=== PATIENT | male | born 1985 | race Caucasian/White ===

== ENCOUNTER 2020-09-10 09:00 | Outpatient (RCR) | payer BC, SELFPAY ==
--- NOTE | 2020-09-10 09:00 | BH.SGPN.GN ---
Behaviors/Verbalizations/Mental Status: [] Pt eye contact good, casually dressed, motor activity appropriate, speech normal rate and tone, mood anxious, congruent affect, thoughts linear and intact, no evidence of delusions or hallucinations. Client Response/Progress/Benefit: []Pt responded well to session AEB by pt listening attentively to peers and sharing thoughts and feelings. Pt stated he is seeking treatment because his anxiety is keeping him from socializing with others. Pt reported he has OCD which has worsened with the pandemic. Pt reported his obsessions have recently been about eating healthy and working out, which he stated he views as a positive since it's healthy things. Although pt reported he does get anxious if he doesn't exercise. Pt stated OCD keeps him from leaving his house. Pt's first day. Seemed to benefit from support from peers. Pt to continue IOP to increase healthy coping, decrease anxiety and prevent decompensation. Narrative Note: []
--- NOTE | 2020-09-10 09:00 | BH.COMM ---
Communication Note - Communication with Client Communication Note: Completed initial paperwork. Minimal changes since pre-admission screening. Pt reports that he is currently not taking any medications which was decision discussed with his outpatient psychiatrist. Continues to be on FMLA from work and has not returned in any capacity due to his mental health. Completed [place] Suicide Screening with low risk. Obsessive thoughts and germaphobia continues to significantly impact his functioning.
--- NOTE | 2020-09-10 10:10 | BH.SGPN.GN ---
Behaviors/Verbalizations/Mental Status: [] Eye contact is good. Motor activity is appropriate. Appearance is casual. Speech is Appropriate. Mood is anxious. Affect is congruent. Thoughts are linear and logical. No evidence of psychosis. Client Response/Progress/Benefit: [] Pt was an active participant in group discussion and activity. Attentive during psychoeducation. Pt and peers provided examples of pitfalls or setbacks that people can fall into which impact mental health which included; triggers, fear, cognitive distortions, isolating, self-pity, avoidance, and pushing support away. During experiential activity pt along with peers identified several other pitfalls associated with mental health which included; poor communication, assumptions, lack of awareness, negative self-talk, anger, personalizing, and ruminating. Benefited from group by increasing awareness of pitfalls which can impact mental health. Pt will continue in IOP to prevent decompensation, decrease intrusive thoughts, and improve functioning to return to work. Narrative Note: [] This psychotherapy group was provided via telehealth using two-way, real-time interactive telecommunication technology between the patients and the provider. The interactive telecommunication technology included audio and video. The patient was offered telemedicine as an option for care delivery during the COVID-19 pandemic and consented to this option. Patient location: [place] Provider located at [facility]
--- NOTE | 2020-09-10 11:18 | BH.SGPN.GN ---
This psychotherapy group was provided via telehealth using two-way, real-time interactive telecommunication technology between the clients and the provider. The interactive telecommunication technology included audio and video. The client was offered telemedicine as an option for care delivery during the COVID-19 pandemic and consented to this option. Client location: [place] Provider located at [facility] Behaviors/Verbalizations/Mental Status: []Client alert and oriented, neatly dressed and groomed. Eye contact good. Motor activity appropriate. Speech within normal limits. Affect congruent, mood euthymic. Thoughts linear, logical, no signs of hallucinations or delusions Client Response/Progress/Benefit: []Client receptive of session, engaged throughout AEB client actively listening and contributing to discussion, as well as taking notes. Client completed worksheet identifying personal pitfalls impacting mental health progress. Client identified the following pitfalls: expecting the worst, making assumptions, avoidance, fear of failure, and unrealistic expectations of others. Attentive during group brainstorm of strategies to overcome pitfalls. Client will work on overcoming unrealistic expectations of others by practicing thinking before he speaks. Benefited from identifying personal pitfalls and strategies to overcome these pitfalls. Will continue IOP tx to prevent decompensation, learn healthy coping skills, and decrease avoidance behaviors. Narrative Note: []
--- NOTE | 2020-09-11 09:00 | BH.SGPN.GN ---
This psychotherapy group was provided via telehealth using two-way, real-time interactive telecommunication technology between the clients and the provider. The interactive telecommunication technology included audio and video. The client was offered telemedicine as an option for care delivery during the COVID-19 pandemic and consented to this option. Client location: [place] Provider located at [facility] Behaviors/Verbalizations/Mental Status: []Client alert and oriented, neatly dressed and groomed. Eye contact good. Motor activity appropriate. Speech within normal limits. Affect constricted, mood anxious. Thoughts linear, logical, no signs of hallucinations or delusions. Reviewed client?s symptom tracker, no risk for suicidal ideation, plan, or intent as of 09/11/20 Client Response/Progress/Benefit: []Client responded well to session, attentive and receptive to feedback. Client reports feeling stressed this morning as client went to a graduation democrat over the weekend and it was too much exposure. Client struggles with OCD, specifically fear of germs, so he has been working on small exposure goals. However, client recognizes that he pushed himself too far with the graduation democrat. Client shared he has been working on catching catastrophizing thoughts and not letting them control his day/actions. Client wants to continue working on reducing his anxiety and OCD, so he can be social again. Appeared to benefit from reflecting on positives and processing stressors. Progress noted as client is working on individual goals, but his fears continue to impact overall functioning. Will continue IOP tx to prevent decompensation, increase healthy coping skills, and improve overall functioning. Narrative Note: []
--- NOTE | 2020-09-11 10:05 | BH.SGPN.GN ---
Behaviors/Verbalizations/Mental Status: [] Eye contact is good. Motor activity is appropriate. Appearance is casual. Speech is Appropriate. Mood is anxious. Affect is congruent. Thoughts are linear and logical. No evidence of psychosis. Client Response/Progress/Benefit: [] Pt was an active participant in group discussion and activity. Attentive during psychoeducation. Group identified the benefits of making changes or taking action on their mental wellness which included; increased confidence, healthier relationships, improved emotional health, reduction of anxiety, increased awareness, and improved recognition of triggers. Pt stated that the 3 biggest obstacles for him to taking action or making changes in his life are fear of judgement, comfortable habits, catastrophizing. Increased awareness of importance of taking action in mental health and obstacles that keep them from taking action. Will continue in IOP to decrease intrusive contamination throughs, increase health coping skills, and improve functioning to return to work. Narrative Note: [] This psychotherapy group was provided via telehealth using two-way, real-time interactive telecommunication technology between the patients and the provider. The interactive telecommunication technology included audio and video. The patient was offered telemedicine as an option for care delivery during the COVID-19 pandemic and consented to this option. Patient location: [place] Provider located at [facility]
--- NOTE | 2020-09-11 11:10 | BH.SGPN.GN ---
This psychotherapy group was provided via telehealth using two-way, real-time interactive telecommunication technology between the patients and the provider. The interactive telecommunication technology included audio and video. The patient was offered telemedicine as an option for care delivery during the COVID-19 pandemic and consented to this option. Patient location: [place] Provider located at [facility] Behaviors/Verbalizations/Mental Status: []Client alert and oriented, casually dressed and appropriately groomed. Eye contact good. Motor activity appropriate. Speech within normal limits. Affect constricted, mood anxious. Thoughts linear, logical, no signs of hallucinations or delusions. Client Response/Progress/Benefit: []Client responded well to session, taking notes and participating in worksheet discussion. Client set a goal to gain control over his catastrophic thinking. Client wants to be able to work on this by exposing himself to 2-3 uncomfortable things daily. Client connected with fear hierarchy explained to him by therapist. Client stated he will ask his for support to help him accomplish this goal. Worked with group to brainstorm ideas to help increase follow through of goal. Appeared to benefit from identifying a small goal to benefit mental health. Will continue IOP tx to prevent decompensation, increase healthy coping skills, and improve daily functioning. Narrative Note: []
--- NOTE | 2020-09-12 09:00 | BH.SGPN.GN ---
Behaviors/Verbalizations/Mental Status: [] Eye contact is good. Motor activity is appropriate. Appearance is casual. Speech is Appropriate. Mood is anxious. Affect is congruent. Thoughts are linear and logical. No evidence of psychosis. Reviewed daily check in sheet and no reports of suicidal ideations or intent. Client Response/Progress/Benefit: [] Pt participated when prompted. Attentive. Pt shared with the group that after yesterday's group on taking action he decided to change his goal for today. He has plans to leave the house and take the car for an oil change. Significant anxiety and distress due to contamination fears and being in a small waiting room. He reports being motivated and discussed skills that he has learned through exposure therapy and CBT that he will be utilizing. Focused on making it through without walking outside of the waiting room for air or space. Displayed some all or nothing thinking on success vs failure. He noted regression yesterday as he felt compulsion to clean some items that his bought from a local thrift store, however he did sit with the uncomfortable for 24 hours. Some progress noted per pt report. Benefited from group support and feedback. Will continue in IOP to improve functioning to return to work and to decrease intrusive thoughts. Narrative Note: [] This psychotherapy group was provided via telehealth using two-way, real-time interactive telecommunication technology between the patients and the provider. The interactive telecommunication technology included audio and video. The patient was offered telemedicine as an option for care delivery during the COVID-19 pandemic and consented to this option. Patient location: [place] Provider located at [facility]
--- NOTE | 2020-09-12 10:05 | BH.SGPN.GN ---
Behaviors/Verbalizations/Mental Status: [] Eye contact is good. Motor activity is appropriate. Appearance is casual. Speech is Appropriate. Mood is anxious. Affect is constricted. Thoughts are linear and logical. No evidence of psychosis. Client Response/Progress/Benefit: [] Pt was an engaged participant in group discussions. Attentive during psycho-education on 4 types of conflict styles (Competing, Collaborating, Avoiding, and Accommodating). Worked with group to define conflict and identify how conflict is helpful; (allows us to grow, helps us stand up for ourselves, empowers us, helps clarify, and helps us gain clarification). With peers identified what prevents them from addressing or managing conflict which included: emotions, past experiences, fear, upbringing, what ifs, and worried how other person will react. Pt stated he has learned a lot about his through their own conflicts. Pt reported conflict has helped improve their relationship. Benefited from group due to increase insight and awareness of conflict, conflict styles, and obstacles to managing conflict. Pt to continue IOP to increase healthy coping, improve daily functioning and prevent decompensation.
--- NOTE | 2020-09-12 11:08 | BH.SGPN.GN ---
This psychotherapy group was provided via telehealth using two-way, real-time interactive telecommunication technology between the clients and the provider. The interactive telecommunication technology included audio and video. The client was offered telemedicine as an option for care delivery during the COVID-19 pandemic and consented to this option. Client location: [place] Provider located at [facility] Behaviors/Verbalizations/Mental Status: []Client alert and oriented, neatly dressed and groomed. Eye contact good. Motor activity appropriate. Speech within normal limits. Affect congruent, mood anxious. Thoughts linear, logical, no signs of hallucinations or delusions. Client Response/Progress/Benefit: []Client engaged in session AEB contributing to discussion and engaging in activity. Client did well to review current conflict style and its impact on mental health. Attentive and taking notes during discussion on strategies for more effectively managing conflict in own life. Client identified wanting to work on coming to a compromise or understanding when in a conflict. Client shared he and his have learned how to better communicate which has helped them fight less often. Client wants to further improve this. Appeared to benefit from learning strategies to better manage conflict. First week of IOP tx. Will continue IOP tx to prevent decompensation, learn healthy coping skills, and reduce avoidance behaviors. Narrative Note: []
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
--- NOTE | 2020-09-12 13:13 | BH.DR.ITP ---
Initial Treatment Plan Patient Information Visit Information: ADMISSION DATE: EXPECTED LOS: 4-6 weeks Problems/Symptoms Problem #1:: Depression Symptom:: Crying, hopelessness, worthlessness, guilt, feeling he is a burden to his Problem #2:: Anxiety Symptom:: Obsessions, cleaning rituals, flashbacks, worry, rumination, reexperiencing, nightmares, avoidance
--- NOTE | 2020-09-17 10:10 | BH.SGPN.GN ---
Behaviors/Verbalizations/Mental Status: [] Eye contact is good. Motor activity is appropriate. Appearance is casual. Speech is Appropriate. Mood is anxious. Affect is congruent. Thoughts are linear and logical. No evidence of psychosis. Client Response/Progress/Benefit: [] Pt was an active participant in group discussion and activity. Attentive during psychoeducation on internal vs external coping skills. Pt along with peers provided their thoughts and insights on the definition of coping skills. Pt along with peers worked together to identify unhealthy coping skills which included; over-eating, smoking, using substances, self-harm, lashing out, isolation, avoidance, sleeping, shopping, reckless behaviors, and denial. Interactive discussion amongst peers on the reasons that people utilize unhealthy copings skills (easy, comfortable, habitual, temporary relief). Benefited from increased awareness of unhealthy coping skills, internal coping skills, and external coping skills. Will continue in IOP to decrease intrusive thoughts and improve functioning to return to work. Narrative Note: [] This psychotherapy group was provided via telehealth using two-way, real-time interactive telecommunication technology between the patients and the provider. The interactive telecommunication technology included audio and video. The patient was offered telemedicine as an option for care delivery during the COVID-19 pandemic and consented to this option. Patient location: [place] Provider located at [facility]
--- NOTE | 2020-09-17 11:15 | BH.SGPN.GN ---
This psychotherapy group was provided via telehealth using two-way, real-time interactive telecommunication technology between the clients and the provider. The interactive telecommunication technology included audio and video. The client was offered telemedicine as an option for care delivery during the COVID-19 pandemic and consented to this option. Client location: [place] Provider located at [facility] Behaviors/Verbalizations/Mental Status: []Client alert and oriented, neatly dressed and groomed. Eye contact good. Motor activity appropriate. Speech within normal limits. Affect constricted, mood anxious. Thoughts linear, logical, no signs of hallucinations or delusions Client Response/Progress/Benefit: []Client responded well to session, taking notes and contributing throughout. Group discussed the different categories of coping skills which included distraction, emotional release, grounding, self-love, and thought challenging. Client participated in creating a coping skills ?menu? from the five categories of coping skills. Client's coping skill menu included: creating a weekly schedule, exercising, walking in nature, eating a healthy diet, and asking supports for perspective. Appeared to benefit from increasing repertoire of healthy coping skills. Will continue tx to prevent decompensation, improve daily functioning impaired by anxiety, and increase ability to manage intrusive thinking. Narrative Note: []
--- NOTE | 2020-09-17 14:35 | BH.MDN_ITS ---
Multi-Disciplinary Note - Note 45-min Individual Time Started:: 09:05 Date: 09/17/20 Purpose of session/treatment goals addressed:: The purpose of this session was to explore current emotions, symptoms, and stressors. Another goal was to normalize client's symptoms by providing psychoeducation on anxiety and intrusive thinking. Other topics included treatment goals Eye Contact:: Good Motor Activity:: Appropriate Appearance:: Casual Speech:: Appropriate Mood:: Anxious Affect:: Congruent Thoughts:: Linear, Logical, No evidence of hallucinations/delusions noted Staff Interventions:: Therapist used open-ended questions and active listening to explore client?s current symptoms, stressors, and history. Therapist provided psychoeducation on anxiety and intrusive thoughts to normalize client's experience and help client learn about effective interventions. Therapist used strengths perspective to empower client on personal accountable. Therapist explored client's treatment goals. Therapist gave client a handout on intrusive thinking and a fear ladder worksheet. Client Response:: Client responded well to session, open to meeting with therapist. Client stated he currently sees a therapist at [facility] and together they have gone over ERP. Client states he might have went too far as client went to a grad constitution party recently and now he feels overwhelmed. Discussed the fear ladder and the benefits of setting small exposure goals to build up confidence and slowly reduce anxiety. Client stated he knows about CBT, but has not learned about intrusive thinking. Client feels like he has a lot of intrusive, catastrophizing thoughts. Client shared I always go to the worst case scenario. Client reported his biggest worries are fear of and fear of losing his family. Discussed how intrusive thoughts are often centered around the things we value most. Receptive to psychoeducation on anxiety, safety behaviors, and negative thinking. Client stated his goals for therapy are to accomplish life without having panic attacks and to not feel so heavy all the time. Client reports his is supportive and he feels bad that he is not able to work and do more for his family. Discussed self-compassion to help combat negative self-talk. Risks/Concerns:: Client denies any suicidal ideations, plan, or intent as of 09/17/20. Client not currently on medication which could be a potential barrier to treatment. Progress Toward Goals/Plan:: Client is new to [facility] tx and he appears to be responding well to the group setting. Client has awareness of his OCD symptoms and recognizes that ERP is an effective treatment. Client currently endorses intrusive thoughts about , health, and germs. Client reports compulsive behaviors such as washing food and hand washing. Client is currently not working due to his mental health and his social and familial functioning are impacted as well. Client reports negative self-talk due to his inability to work and provide for his family. Will continue IOP tx to prevent decompensation, increase healthy coping skills, and improve daily functioning. Time Stopped:: 09:47
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
--- NOTE | 2020-09-17 14:36 | BH.MTP ---
Master Treatment Plan - Patient Information Program Physician:: Dr. Felicia Arredondo Primary Therapist:: Haley DIAMOND - Psychiatric Diagnoses Psychiatric Diagnoses:: Obsessive-compulsive disorder; major depressive disorder, recurrent, severe without psychosis Diagnosis Code(s):: F 42.2; F33.2 - Estimated LOS Estimated LOS (in weeks):: 6 Problem/Goal #1 - Problem/Goal #1 Stated Goal:: Client will reduce overall frequency, intensity, and duration of OCD symptoms so that daily functioning is less impaired. Description of Barriers: Client does not want to try medication to treat his OCD at this time. Client has limited insight to his safety behaviors and how these reinforce anxiety and OCD. Client is currently doing IOP via telehealth, which may be both a strength and barrier as it could potentially reinforce OCD fears. Functional Impact: Client as 35-year-old male with a history of OCD and MDD. Client was referred to IOP by his outpatient advanced practice nurse psychotherapist due to client's mental health symptoms impacting his functioning and limited benefit from traditional counseling. Client has not been to work since 03/2020 due to fears, compulsions, and obsessions. Client endorses contamination fears such as getting COVID or other illnesses from touching contaminated sources. Prior to admission, client had not left his house and stepping out of his bubble results in significant distress. 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 Client currently endorses a poor appetite, hopelessness, worthlessness, and crying spells. Client feels like a burden to his due to limited functioning and not being able to work. Client's symptoms are severely impacting his social, familial, and occupational functioning. Goal Relevant Strengths/Supports: Client is intelligent, connected with outpatient services, and has some knowledge of ERP therapy. Client has a good relationship with his . Client is engaged and willing to learn. - Objectives Objective #1 Stated Objective: Client will identify 2-3 intrusive/ruminating thoughts and learn 2-3 strategies to overcome, replace, or reduce the value of those thoughts. Interventions: Therapist will help client increase awareness of cognitive distortions, false comfort, and myths about intrusive thoughts. Therapist will encourage client to focus on stressors in his control and teach client distress tolerance techniques. Therapist will utilize distractions, mindfulness, and CBT-based strategies to help client learn how to more effectively manage and cope with his intrusive thoughts. Therapist will use a workbook to give client homework and exercises to practice. Discharge Criteria: Client will have met this goal when can report least 2 ways to cope with intrusive thoughts that exacerbate anxiety. Target Date: 10/22/20 Review Date: 10/08/20 Status: open Objective #2 Stated Objective: Client will reduce safety behaviors that reinforce OCD and anxiety by setting 1-2 small exposure goals a week to increase ability to manage OCD over time. Interventions: Through group and individual sessions, client will learn about the benefits of setting exposure goals to reduce OCD over time. Therapist will help client create a fear-ladder that will act as a guide in confronting anxiety-producing situations. The fear-ladder will go from least anxiety-producing to most anxiety-producing so client can build confidence. Therapist will help client set SMART goals and challenge barriers. Therapist will use cognitive restructuring techniques and help client gain awareness of negative thoughts that reinforce safety behaviors. Therapist will help client incorporate mindfulness, opposite action, and self-talk strategies to manage anxiety. Discharge Criteria: Client will have accomplished this goal when he can report accomplishing at least one small exposure goal a week. Additionally, client will be able to report decreased safety behaviors. Target Date: 10/22/20 Review Date: 10/08/20 Status: open Problem/Goal #2 - Problem/Goal #2 Stated Goal:: Client will decrease depressive symptoms, feelings of being a burden, and guilt due to major depressive disorder. Description of Barriers: Client does not want to try medication to treat his OCD at this time. Client has limited insight to his safety behaviors and how these reinforce anxiety and OCD. Client is currently doing IOP via telehealth, which may be both a strength and barrier as it could potentially reinforce OCD fears. Functional Impact: Client as 35-year-old male with a history of OCD and MDD. Client was referred to IOP by his outpatient advanced practice nurse psychotherapist due to client's mental health symptoms impacting his functioning and limited benefit from traditional counseling. Client has not been to work since 03/2020 due to fears, compulsions, and obsessions. Client endorses contamination fears such as getting COVID or other illnesses from touching contaminated sources. Prior to admission, client had not left his house and stepping out of his bubble results in significant distress. 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 Client currently endorses a poor appetite, hopelessness, worthlessness, and crying spells. Client feels like a burden to his due to limited functioning and not being able to work. Client's symptoms are severely impacting his social, familial, and occupational functioning. Goal Relevant Strengths/Supports: Client is intelligent, connected with outpatient services, and has some knowledge of ERP therapy. Client has a good relationship with his . Client is engaged and willing to learn. - Objectives Objective #1 Stated Objective: Client will learn and utilize 2-3 healthy coping strategies to better manage depressive symptoms and reduce DSM-5 symptoms for depression. Interventions: Through group and individual sessions, therapist will help client identify triggers and warning signs of depression and emotional dysregulation including emotional, physical, and behavioral changes. Therapist will teach client various coping skills to manage his symptoms. Therapist will use cognitive restructuring techniques and help client gain awareness of negative thoughts that reinforce depressive cycles. Therapist will help client incorporate mindfulness and emotional regulation skills when dealing with difficult situations. Discharge Criteria: Client will have met this goal when he can report learning and using at least 2 coping skills to manage depressive symptoms and her DSM-5 scores for depression have decreased. Target Date: 10/22/20 Review Date: 10/08/20 Status: open Objective #2 Stated Objective: Client will identify at least 2-3 negative self-talk messages used to reinforce depressive symptoms and replace thoughts with positive, realistic messages. Interventions: Therapist will help client identify distorted, negative beliefs about self and replace with more realistic, affirmative messages. Therapist will use CBT to help client increase insight to the connection between thoughts, emotions, and behaviors. Therapist will also use dialectical thinking to help client combat all or nothing expectations. Therapist will encourage client to practice thought challenging. Discharge Criteria: Client will have achieved this goal when can verbalize at least 2 negative self-talk messages and effectively replace those thoughts with affirmative messages. Target Date: 10/22/20 Review Date: 10/08/20 Status: open
--- NOTE | 2020-09-18 09:02 | BH.SGPN.GN ---
This psychotherapy group was provided via telehealth using two-way, real-time interactive telecommunication technology between the patients and the provider. The interactive telecommunication technology included audio and video. The patient was offered telemedicine as an option for care delivery during the COVID-19 pandemic and consented to this option. Patient location: [place] Provider located at [facility] Behaviors/Verbalizations/Mental Status: [] Pt eye contact good, casually dressed, motor activity appropriate, speech normal rate and tone, mood anxious, congruent affect, thoughts linear and intact, no evidence of delusions or hallucinations. Reviewed client?s symptom tracker, no signs of suicidal ideation, plan, or intent as of today. Client Response/Progress/Benefit: []Patient responded well to session as evidenced by sharing thoughts and feelings and listened attentively to peers. Patient shared over the weekend he went to his nephew's grad republican which was extremely anxiety provoking. Patient stated he now recognizes he pushed himself too much by going to an event that causes significant anxiety without the skills needed to manage his anxiety effectively. Patient reported although he pushed himself too much he was able to stay at the republican longer than expected and was happy he could show up for his nephew. Patient stated continuing to try to expose himself to things that make him uncomfortable like not cleaning certain items that his family brings from the outside into the house. Patient reported interest in trying to write out a to do list to help keep himself organized and on task. Identify feelings stressed and worn out extreme anxiety felt at graduation republican. Progress noted with patient being willing to expose himself to anxiety provoking situations to help desensitize his anxious response. Patient to continue IOP to decrease anxiety, improve daily functioning, and prevent decompensation. Narrative Note: []
--- NOTE | 2020-09-18 10:08 | BH.SGPN.GN ---
Behaviors/Verbalizations/Mental Status: []Client alert and oriented, casual dress, hygiene tended to. Eye contact good. Motor activity appropriate. Speech within normal limits. Affect congruent, mood euthymic and anxious. Thoughts linear, logical, no signs of hallucinations or delusions. Client Response/Progress/Benefit: [] Engaged participant AEB pt providing input and examples throughout session and listening attentively to others. Engaged during psychoeducation portion reviewing fixed mindset, sharing that his [id number] taught him to look at fears as ?learning opportunities? which has helped client combat fixed thoughts in the past. Pt worked with group to identify how a fixed mindset can impact mental health which included: keeping people stuck, reinforcing fear of failure, giving up, and negative self-talk. Able to identify personal examples of fixed thoughts which included ?I?m too old? and ?it?s too late for me to start?. Client shared that he believes these fixed thoughts have limited his personal growth in the past. Seemed to benefit from group by increasing awareness of how one's mindset can impact mental health and ability to cope. Pt will continue IOP tx this week to continue to promote healthy coping skills and continue to improve mental health sx management. Narrative Note: []
--- NOTE | 2020-09-18 11:13 | BH.SGPN.GN ---
This psychotherapy group was provided via telehealth using two-way, real-time interactive telecommunication technology between the clients and the provider. The interactive telecommunication technology included audio and video. The client was offered telemedicine as an option for care delivery during the COVID-19 pandemic and consented to this option. Client location: [place] Provider located at [facility] Behaviors/Verbalizations/Mental Status: []Client alert and oriented, casually dressed and groomed. Eye contact good. Motor activity appropriate. Speech within normal limits. Affect congruent. mood anxious. Thoughts linear, logical, no signs of hallucinations or delusions. Client Response/Progress/Benefit: []Client responded well to session, making connections during activity and able to reframe fixed thinking. Client took his fixed thought of ?I?m too old to learn now? and discussed how this thought impacts his mental health. Client was able to use reframing techniques to create a more growth mindset thought of ?I can learn, and I can train my brain like any other muscle.? Client appeared to benefit from gaining awareness of his fixed thought patterns and practicing reframing techniques with peers. Client continues to gain awareness and is learning skill in IOP. Continues to struggle with overcoming anxious thought patterns. Client Will continue IOP tx to prevent decompensation, reduce avoidance, and improve daily functioning. Narrative Note: []
--- NOTE | 2020-09-19 09:05 | BH.SGPN.GN ---
Behaviors/Verbalizations/Mental Status: [] Eye contact is good. Motor activity is appropriate. Appearance is casual. Speech is Appropriate. Mood is anxious. Affect is congruent. Thoughts are linear and logical. No evidence of psychosis. Reviewed daily check in sheet and no reports of suicidal ideations or intent. Client Response/Progress/Benefit: [] Pt participated when prompted. Attentive. Emotion for today is anxious. Mental health win was increased awareness of cognitive distortions that he uses frequently. Able to idnetify that he was catastrophizing due to recent knee injury and was able to catch himself. Insight that awareness is the first step and that the next would be to challenge these thoughts. Progress noted per pt report. Will continue in IOP to improve functioning to return to work, increase healthy coping skills, and decrease intrusive thoughts. Narrative Note: []
--- NOTE | 2020-09-19 10:15 | BH.SGPN.GN ---
Behaviors/Verbalizations/Mental Status: []Eye contact is good. Motor activity is appropriate. Appearance is casual. Speech is Appropriate. Mood is anxious. Affect is congruent. Thoughts are linear and logical. No evidence of psychosis. Client Response/Progress/Benefit: [] Pt was an active participant in group discussion AEB taking notes and providing input throughout. Attentive during psychoeducation reviewing internal and external obstacles, nodded at times though remaining mostly passive. Participated in the reflection activity in which clients alfredo pictures depicting their current and desired reality and shared with the group. Current reality involved feeling ?trapped at the bottom of a well? and noted he is ?trying to shimmy my way out but I?m not using the rope I have to help?. Shared he is trying to challenge himself to continue encouraging himself to take small steps towards progress. Indicated that his desired reality involves being more willing to use the supports and resources he has to help himself make progress in better managing his mental health sx. Identified skills that would help move from current to desired realities would be challenging his perspective. Benefited from group by increasing current awareness and expectations for progress. Will continue in IOP to improve mood stability, continue to promote healthy change behaviors, and further encourage small exposure therapy steps. Narrative Note: []
--- NOTE | 2020-09-19 11:15 | BH.SGPN.GN ---
Behaviors/Verbalizations/Mental Status: []Client alert and oriented, casually dressed and groomed. Eye contact good. Motor activity appropriate. Speech within normal limits. Affect congruent. Mood euthymic slightly anxious. Thoughts linear, logical, no signs of hallucinations or delusions. Client Response/Progress/Benefit: []Client engaged during activity and provided ideas on how to cope with internal barriers that keep clients stuck from moving towards goals. Client able to identify barriers to desired reality. Client reported he wants to work on overcoming barrier of catastrophizing. Client reported she will start to overcome this barrier by identifying how likely the worst case scenario is to happen or the odds situation will turn bad. Benefited from group by identifying obstacles and solutions to desired reality. Will continue IOP tx to prevent decompensation, decrease anxious safety behaviors and increase healthy coping skills.
--- NOTE | 2020-09-24 09:05 | BH.SGPN.GN ---
Behaviors/Verbalizations/Mental Status: [] Eye contact is good. Motor activity is appropriate. Appearance is casual. Speech is Appropriate. Mood is anxious. Affect is congruent. Thoughts are linear and logical. No evidence of psychosis. Reviewed daily check in sheet and no reports of suicidal ideations or intent. Client Response/Progress/Benefit: [] Pt spoke when prompted. Attentive. Mental health win reports to be increasing awareness of catastrophizing thoughts. Becoming more aware of when he is focusing on worst-case scenarios. He is also developing thought challenges and affirmations, however this has been a struggle. Shared an example of intrusive and obsessive thoughts about leaving the oven on. Able to challenge by saying odds are that I turned it off and sitting with this thought. Vague on how long he sits with this thought before checking behaviors. Progress noted per pt report. Benefited from group support and encouragement. Will continue in IOP to decrease intrusive thoughts, improve functioning, and increase healthy coping rather than isolation. Narrative Note: [] This psychotherapy group was provided via telehealth using two-way, real-time interactive telecommunication technology between the patients and the provider. The interactive telecommunication technology included audio and video. The patient was offered telemedicine as an option for care delivery during the COVID-19 pandemic and consented to this option. Patient location: [place] Provider located at [facility]
--- NOTE | 2020-09-24 10:15 | BH.SGPN.GN ---
Behaviors/Verbalizations/Mental Status: []Client alert and orient. Appearance casual and appropriately groomed. Speech an appropriate rate and tone. Motor activity WNL. Mood euthymic, affect congruent. No evidence of delusion or hallucinations.? Client Response/Progress/Benefit: []Client responded well to session, attentive and contributing to discussion. Group discussed potential barriers to communication including: yelling, name-calling, unmanaged emotions, facial expressions, and shutting down. Client stated heightened emotions can be a barrier to effective communication. Helped group identified positives of having effective communication skills. Attentive during psychoeducation on the four communication styles. Client reported he most often uses passive and passive-aggressive communication styles. Able to recognize negative outcomes of communication style. Seemed to benefit from increased awareness of the different communication styles and identify personal communication style. Client to continue in IOP tx to reduce anxious thoughts, improve daily functioning, and prevent decompensation.
--- NOTE | 2020-09-24 11:18 | BH.SGPN.GN ---
Behaviors/Verbalizations/Mental Status: []Client alert and oriented, casually dressed and groomed. Eye contact fair to good. Motor activity appropriate. Speech within normal limits. Affect congruent, mood anxious. Thoughts linear, logical, no signs of hallucinations or delusions. Client Response/Progress/Benefit: []Client engaged participant AEB attentiveness during discussion, taking notes throughout, as well as providing input. Client stated he struggles with the passive communication styles depending upon the situation. Noted that he has most been impacted by passive communication and often feels like his needs aren?t being met as a result. Discussed not communicating with himself regularly as a potential barrier reinforcing passivity. Attentive during psychoeducation about DEAR MAN (Describe, Express, Assert, Reinforce, Mindfulness, Appear confident, Negotiate) interpersonal communication skill. Client identified communication goal is to improve assertiveness by focusing on the skill of Express by more actively taking time to reflect and explain to himself how he is feeling in order to better describe this to others. Client seemed to benefit from increased insight into how personal communication style impacts mental health and relationships. Client progress variable as he continues to struggle with significant anxiety, however has made strides in this area via improved thought challenging and reduced reassurance seeking. Will continue IOP tx to continue to promote healthy change behaviors, improve anxiety management, and prevent decompensation. Narrative Note: []
--- NOTE | 2020-09-25 09:05 | BH.SGPN.GN ---
Behaviors/Verbalizations/Mental Status: [] Eye contact is good. Motor activity is appropriate. Appearance is casual. Speech is Appropriate. Mood is anxious. Affect is congruent. Thoughts are linear and logical. No evidence of psychosis. Reviewed daily check in sheet and no reports of suicidal ideations or intent. Client Response/Progress/Benefit: [] Pt participated at times during the group discussion. Attentive. Emotion for today is hopeful and willful. Shared that he continues to work on his catastrophizing thoughts which he reports are very in-depth. He has developed a system to help address tasks and goals w/o allowing cognitive distortions to distract and cause him to give up on goal. He is choosing and addressing 1 task per day no matter if it is big or small. He is not going to convince himself he needs to complete everything and then feel like a failure if he does not complete unrealistic goals. He reports changing thoughts and perspectives to more realistic expectations. Progress noted per pt report. Benefited from group support, encouragement, and feedback. Will continue in IOP to decrease intrusive thoughts, improve functioning, and decrease compulsions. Narrative Note: [] This psychotherapy group was provided via telehealth using two-way, real-time interactive telecommunication technology between the patients and the provider. The interactive telecommunication technology included audio and video. The patient was offered telemedicine as an option for care delivery during the COVID-19 pandemic and consented to this option. Patient location: [place] Provider located at [facility]
--- NOTE | 2020-09-25 11:13 | BH.SGPN.GN ---
This psychotherapy group was provided via telehealth using two-way, real-time interactive telecommunication technology between the clients and the provider. The interactive telecommunication technology included audio and video. The client was offered telemedicine as an option for care delivery during the COVID-19 pandemic and consented to this option. Client location: [place] Provider located at [facility] Behaviors/Verbalizations/Mental Status: []Client alert and oriented, neatly dressed and groomed. Eye contact good. Motor activity appropriate. Speech within normal limits. Affect constricted, mood anxious. Thoughts linear, logical, no signs of hallucinations or delusions. Client Response/Progress/Benefit: []Client an active participant throughout AEB contributing to discussion and taking notes. Client participated in the group activity highlighting the various barriers to effectively utilizing supports and strategies the group used. Client participated in discussion of the four types of support (emotion, tangible, informational, and social/peer) and the group listed examples for all types. Client reports wanting to work on increasing tangible support as client feels this will reduce stress at home and give him more time to spend with his family. Client plans to do this by looking up ?handy-men? in the area, getting quotes on house projects, and committing to making a list of projects client will not do alone. Client seemed to benefit from identifying the type of support client wants to improve. Will continue IOP tx to prevent decompensation, increase ability to cope with OCD, and increase exposure. Narrative Note: []
--- NOTE | 2020-09-25 11:13 | BH.SGPN.GN ---
Behaviors/Verbalizations/Mental Status: []Eye contact is good. Motor activity is appropriate. Appearance is casual. Speech is Appropriate. Mood is anxious and euthymic. Affect is congruent. Thoughts are linear and logical. No evidence of psychosis. Client Response/Progress/Benefit: []Pt was an active participant AEB attentiveness, and provided input during discussion, and participation in activity. Contributed to group discussion on benefits and examples of healthily social supports. Indicated, ?I don?t know if this counts, but I would add coping skills. It?s nice to have internal support and not just external because you can?t always rely on external if they aren?t available?. Group noted benefits of strong social supports as: provides encouragement, hold us accountable, different perspective, and tangible resources. Client attentive throughout discussion on barriers to using support system. Identified a personal barrier to using supports as poor communication. Able to see the impact of support and its benefits during activity and challenges of accomplishing tasks w/o proper support. Benefited from awareness of barriers to support as well as importance of support in mental health wellness. Will continue IOP tx to continue to improve anxiety management skills, improve mood stability, and prevent decompensation. Narrative Note: []
--- NOTE | 2020-09-25 14:23 | BH.MDN ---
Multi-Disciplinary Note - Note 45-min Individual Time Started:: 12:15 Date: 09/25/20 Purpose of session/treatment goals addressed:: To work on goal #1 of client's tx plan. Another goal was to help client focus on mental health wins Symptoms/Behavior:: This counseling session was provided via telehealth using two-way, real-time interactive telecommunication technology between the client and the clinician. The interactive telecommunication technology included audio and video. The client was offered telehealth as an option for care delivery during the COVID-19 pandemic and consented to this option. Client location: [place]. Provider located at [facility] Eye Contact:: Good Motor Activity:: Appropriate Appearance:: Casual Speech:: Appropriate Mood:: Anxious Affect:: Congruent - tearful Thoughts:: Racing, No evidence of hallucinations/delusions noted Staff Interventions:: Therapist provided psychoeducation on intrusive thinking and reviewed the chapters client read for homework. Therapist helped client create goals for his fear ladder and encouraged client to set realistic goals. Therapist use cognitive restructuring to help client identify and challenge distorted self-talk patterns. Client Response:: Client responded well to session, open to meeting with therapist. Client stated that he enjoyed the chapter from the overcoming unwanted intrusive thoughts book. Client connected with how the brain creates intrusive thought patterns and discussed his personal experience. Client stated his would like to have a family session at some point to learn when to push and when not to push. Client shared he continues to exercise, but he wants to get in a better habit of acknowledging positives throughout the day. Discussed journaling times when his anxious thoughts did not come true. Client thought this idea might be beneficial because client catastrophizes. Discussed client's fear ladder and client shared goals he has set. Client reports the end of his fear ladder would be letting his son have a playdate with other children. Client became tearful and guilty that he has kept his son from being social because of client's OCD. Client receptive to emotional support and gentle thought challenging. Client set some exposure goals for the week and most of them would produce mild-moderate anxiety per client's report. Discussed how continuing to set realistic goals and mastery is important in overcoming OCD. Risks/Concerns:: Client denies any suicidal ideations, plan, or intent as of 09/25/20. Progress Toward Goals/Plan:: Client continues to respond well to IOP AEB his consistent attendance and engagement. Client has been consistent with reading chapters and setting goals. Client continues to endorse intrusive, contamination thoughts, compulsions, avoidance, and negative self-talk. Client states he wants to stop feeling controlled by his OCD. Client continues to decline medication for his OCD which could prevent client from making significant progress. Will continue IOP tx to prevent decompensation and increase emotional resilience. Time Stopped:: 12:55
--- NOTE | 2020-09-26 09:05 | BH.SGPN.GN ---
This psychotherapy group was provided via telehealth using two-way, real-time interactive telecommunication technology between the clients and the provider. The interactive telecommunication technology included audio and video. The client was offered telemedicine as an option for care delivery during the COVID-19 pandemic and consented to this option. Client location: [place] Provider located at [facility] Behaviors/Verbalizations/Mental Status: []Client alert and oriented, casually dressed and groomed. Eye contact good. Motor activity appropriate. Speech within normal limits. Affect constricted, mood anxious. Thoughts linear, logical, no signs of hallucinations or delusions. Reviewed client?s symptom tracker, no risk for suicidal ideation, plan, or intent as of 09/26/20 Client Response/Progress/Benefit: C[] Client responded well to session, attentive and participating. Client reports feeling shaky and hyper this morning as client went to a public place yesterday which was a goal on client's fear ladder. Client shared it was stressful, but he also had a good time with his and son. Client stated he embraced the triggers which appeared to help client get through the anxious moments. Client reports he plans to do another goal on his fear ladder today and hang out with a friend. Client was encouraged not to attempt too many goals in a week as this could be counterproductive. Receptive to feedback, but client shared belief he can manage this task. Progress noted in client's ability to expose himself to stressful situations, but client continues to struggle with not engaging in rituals following the exposure. Will continue IOP tx to promote use of healthy coping skills and further reduce OCD. Narrative Note: []
--- NOTE | 2020-09-26 10:16 | BH.SGPN.GN ---
Behaviors/Verbalizations/Mental Status: []Eye contact is good. Motor activity is appropriate. Appearance is appropriate. Speech is Appropriate. Mood is anxious. Affect is congruent. Thoughts are linear and logical. No evidence of psychosis. Client Response/Progress/Benefit: [] Client was an active participant AEB attentiveness, taking notes, and contributing throughout. Client contributed during group discussion reviewing the importance of addressing and learning to cope with anxiety. Attentive during psychoeducation on different types of anxiety disorders. Provided input as group worked to describe anxiety as well as the impact of anxiety unmanaged anxiety on daily functioning. Client shared ?Hope you like where you?re at because if you don?t face the uncomfortable then you can?t experience growth or change?. Worked with group to identify common physical symptoms of anxiety and noted personal anxiety symptoms to include: feeling hot, sweaty palms, racing thoughts, and insomnia. Worked with group to identify safety behaviors which included: making excuses or lying to get out of things, pacing, and ruminating/reassurance seeking, and avoiding things. Benefited from increased insight and awareness from group discussions. Will continue in IOP to improve mood stability, prevent decompensation, and improve consistent skill application. Narrative Note: []
--- NOTE | 2020-09-26 11:16 | BH.SGPN.GN ---
This psychotherapy group was provided via telehealth using two-way, real-time interactive telecommunication technology between the patients and the provider. The interactive telecommunication technology included audio and video. The patient was offered telemedicine as an option for care delivery during the COVID-19 pandemic and consented to this option. Patient location: [place] Provider located at [facility] Behaviors/Verbalizations/Mental Status: []Client alert and oriented, casually dressed and groomed. Eye contact good. Motor activity appropriate. Speech within normal limits. Affect congruent, mood euthymic. Thoughts linear, logical, no signs of hallucinations or delusions. Client Response/Progress/Benefit: []Client was an active participant in group discussion and providing good insight to peers. Reviewed safety behaviors she engages in that reinforce anxiety. Attentive during psychoeducation on mindfulness coping skills and their impact on mental health wellness. The group worked together to brainstorm anxiety reduction strategies. Client shared she is willing to practice the following coping skills for anxiety: exposure techniques, music and walking. Client seemed to benefit from increased repertoire of anxiety reduction skills. Client will continue IOP tx to continue use of healthy coping skills, continue to work on fear ladder and prevent decompensation. Narrative Note: []
--- NOTE | 2020-10-01 09:10 | BH.SGPN.GN ---
Behaviors/Verbalizations/Mental Status: [] Eye contact is good. Motor activity is appropriate. Appearance is casual. Speech is Appropriate. Mood is euthymic. Affect is full. Thoughts are linear and logical. No evidence of psychosis. Reviewed daily check in sheet and no reports of suicidal ideations or intent. Client Response/Progress/Benefit: [] Pt was an active participant in group discussion on the impact of gaslighting on mental health. Attentive. Shared mental health win was having 3 people spend the day and night in the house. Shared that due to his contamination fears this was a huge step for him. Pt states I handled it and made it thought. He discussed the struggles that he encountered prior to, during, and after they left. Some conflict with prior to visiting as he was trying to prepare for every possible occurrence. States I really took a jump on my fear ladder which he states is both positive and negative. Emotion is overall relieved as he feels that he continues to work on his goal of increased exposure. Progress noted per pt report. Benefited from group support, encouragement, and feedback from peers. Will continue in IOP to decrease intrusive thoughts, decrease isolation, and develop healthy coping skills for fears. Narrative Note: [] This psychotherapy group was provided via telehealth using two-way, real-time interactive telecommunication technology between the patients and the provider. The interactive telecommunication technology included audio and video. The patient was offered telemedicine as an option for care delivery during the COVID-19 pandemic and consented to this option. Patient location: [place] Provider located at [facility]
--- NOTE | 2020-10-01 10:12 | BH.SGPN.GN ---
Behaviors/Verbalizations/Mental Status: []Eye contact is good. Motor activity is appropriate. Appearance is casual. Speech is Appropriate. Mood is anxious. Affect is congruent. Thoughts are linear and logical. No evidence of psychosis. Client Response/Progress/Benefit: [] Client was a mostly active participant AEB providing input when prompted, taking notes, as well as contributing during activity. Continues to struggle at times due to being telehealth. Attentive during psychoeducation on managing change and worked with peers to identify common emotions (both positive and negative) associated with change. Client shared ?Change is necessary to grow and improve. Look at evolution?if we didn?t change then, we wouldn?t be here now?. Group discussed the potential benefits to making changes such as; personal growth, motivation to continue making changes, improved mental health, and new opportunities. Client remained engaged and contributed as group worked to identify some obstacles to making changes which included; low motivation, negative feedback from supports, fear of failure, fear of not maintaining change once it?s made, and fear of other?s opinions. Client shared that habit is a personal barrier but that he has reminded himself that ?we can form new habits?. Benefited from group by increasing awareness of emotions and obstacles associated with making changes. Will continue in IOP to prevent decompensation, improve anxiety management, and promote healthy change behaviors. Narrative Note: []
--- NOTE | 2020-10-01 11:14 | BH.SGPN.GN ---
Behaviors/Verbalizations/Mental Status: []Client alert and oriented, casually dressed and groomed. Eye contact good. Motor activity appropriate. Speech within normal limits. Affect constricted. Mood anxious. Thoughts linear, logic. No evidence of hallucinations or delusions. Client Response/Progress/Benefit: []Client was an active participant, contributing to discussion and participating in the activity. Client participated during discussion and psychoeducation on the stages of change. Client states he wants to work on ?fighting against the catastrophizing thinking? and client believes he is in stage 3.5. Client connects with this stage because he is using coping skills and he is trying to change thought patterns, but ?it?s still hard to convince myself? that the worst case scenario will not happen. Client?s small goal is to keep track of wins and times his anxious thoughts were incorrect. Appeared to benefit from reflecting on the stages of change client is currently in and creating a small goal. Will continue IOP tx to prevent decompensation, reduce avoidance behaviors, and improve daily functioning. Narrative Note: []
--- NOTE | 2020-10-02 09:01 | BH.SGPN.GN ---
This psychotherapy group was provided via telehealth using two-way, real-time interactive telecommunication technology between the patients and the provider. The interactive telecommunication technology included audio and video. The patient was offered telemedicine as an option for care delivery during the COVID-19 pandemic and consented to this option. Patient location: [place] Provider located at [facility] Behaviors/Verbalizations/Mental Status: []Client alert and oriented, casually dressed and groomed. Eye contact good. Motor activity appropriate. Speech within normal limits. Affect congruent, mood anxious. Thoughts linear, logical, no signs of hallucinations or delusions. Reviewed client?s symptom tracker, no risk for suicidal ideation, plan, or intent as of 10/02/20. Client Response/Progress/Benefit: []Client responded well to session, attentive and contributing when prompted to discussion. Client reports feeling exhausted this morning. Attributes this to feeling burnt out by his ongoing mental health issues associated with OCE. States ?it?s exhausting having to complete these rituals?. Identified positive steps he is taking in reducing overall anxiety levels and better managing intrusive thoughts. Discussed exposure therapy and fear ladder. Client continues to struggle with trying to take on too much too fast in regard to his exposure therapy which may also be contributing to feelings of exhaustion. Appeared to benefit from connecting with peers and reflecting on wins. Will continue IOP tx to promote gains, further improve mood stability and anxiety management, and reinforce healthy coping skills. Narrative Note: []
--- NOTE | 2020-10-02 10:05 | BH.SGPN.GN ---
This psychotherapy group was provided via telehealth using two-way, real-time interactive telecommunication technology between the clients and the provider. The interactive telecommunication technology included audio and video. The client was offered telemedicine as an option for care delivery during the COVID-19 pandemic and consented to this option. Client location: [place] Provider located at [facility] Behaviors/Verbalizations/Mental Status: []Client alert and oriented, casually dressed and groomed. Eye contact good. Motor activity appropriate. Speech within normal limits. Affect constricted, mood anxious. Thoughts linear, logical, no signs of hallucinations or delusions. Client Response/Progress/Benefit: []Pt was an active participant in group discussion. Attentive during psychoeducation. Along with peers pt was able to provide insight on the importance of goal-setting. Group identified that goals are important because they motivate, increase self-esteem, and are needed to have progress. Group also worked together to identify barriers to goal-setting which included; negative self-talk, not having supportive people, minimizing progress, and toxic people. Pt shared fear of failure has kept client from setting goals. Benefited from increased awareness of benefits and barriers to goal-setting. Pt will continue in IOP to prevent decompensation, reduce compulsions, and increase emotional resilience. Narrative Note: []
--- NOTE | 2020-10-02 13:26 | BH.MDN ---
Multi-Disciplinary Note - Note 45-min Individual Time Started:: 11:30 Date: 10/02/20 Purpose of session/treatment goals addressed:: The purpose of this session was to work on goal #1 of client's tx plan. Another goal was to challenge internal stigma, negative self-talk, and discuss boundary setting. Symptoms/Behavior:: This counseling session was provided via telehealth using two-way, real-time interactive telecommunication technology between the client and the clinician. The interactive telecommunication technology included audio and video. The client was offered telehealth as an option for care delivery during the COVID-19 pandemic and consented to this option. Client location: [place]. Provider located at [facility] Eye Contact:: Good Motor Activity:: Appropriate Appearance:: Casual Speech:: Appropriate Mood:: Anxious, Dysthymic Affect:: Congruent - tearful Thoughts:: Circular, No evidence of hallucinations/delusions noted Staff Interventions:: Therapist reviewed homework from last week and discussed positives and setbacks. Therapist processed client's current emotions towards progress and the fear ladder. Therapist provided emotional support and gentle thought challenging. Therapist encouraged client to set healthy boundaries with supports and set realistic goals for himself. Discussed self-advocacy and stigma. Client Response:: Client responded well to session, open to meeting with therapist. Client had some mental health wins sharing he and his had family over this weekend. This was the first time people have been in client's home since the pandemic started. Client acknowledged this as a big win because of his OCD contamination fears. However, client shared this exhausted client and he has felt the obsessive need to clean everything since they left. Client has been able to prevent himself from cleaning for now, but it is causing client significant distress. Client has also been avoiding the bathrooms the family used for fear of contamination. Client became tearful and frustrated with himself for how debilitating his OCD has been. Receptive to thought challenging and emotional support from therapist. Client has limited insight on how often he uses negative self-talk. Client brought up that he has had many negative experiences associated with mental health and reaching out to support in the past. Client acknowledges that the stigma others have about mental health impacts how client views his mental health. Client shared this week he had a goal to do a very anxiety producing thing which would be a rung up on his fear ladder. After discussion, it appears that client is trying to work up the fear ladder at a rapid pace and is saying yes to activities because he fears others' response to client saying no. Long conversation about the importance of self-advocacy, mastery, and what healthy support looks like. Client encouraged to not yet set a goal that high on the fear ladder, but client was undecided on if he will follow through with it or not. Risks/Concerns:: Client denies any suicidal ideations, plan, or intent as of 10/02/20. Progress Toward Goals/Plan:: Client appears to be making some progress as client reports trying to do more anxiety-producing things. However, client reports increased exhausted and has been more tearful due to lack of self-care following the anxiety-producing activities and setting higher goals. Therapist expressed concern to client about setting too moderate anxiety exposure goals in a short period of time. Client reports compulsions, intrusive thoughts, avoidance of certain ?contaminated? rooms in in his home and increased depressive symptoms. Will continue IOP tx to prevent further decompensation and increase healthy support. Time Stopped:: 12:12
--- NOTE | 2020-10-03 09:01 | BH.SGPN.GN ---
Behaviors/Verbalizations/Mental Status: [] Client alert and oriented, casually dressed and groomed. Eye contact fair to good. Motor activity appropriate. Speech within normal limits. Affect constricted, mood anxious and dysthymic. Thoughts linear, logical, no signs of hallucinations or delusions. Reviewed client?s symptom tracker, reports no suicidal ideation, plan, or intent as of 10/03/20. Client Response/Progress/Benefit: [] Client responded well to session, attentive, and contributing to discussion. Client reports feeling tired but trying to be optimistic this morning. Shared ongoing stressor is feeling exhausted emotionally by the work he is doing to improve overall ability to manage OCD symptoms and intrusive thoughts. Client discussed wanting to improve his ability to communicate his needs with his while also challenging himself to continue to sit with the uncomfortable. Reflected on small exposure goals he was able to accomplish previous date and discussed that reframing catastrophizing thoughts as well as healthy distraction has been most beneficial thus far. Continues to struggle with maintaining realistic expectations for himself regarding progress. Appeared to benefit from connecting with peers and reflecting on wins. Client to continue IOP tx to improve mood stability, reduce anxiety, and continue to promote healthy coping skills. Narrative Note: [] Narrative Note: []
--- NOTE | 2020-10-03 10:15 | BH.SGPN.GN ---
Behaviors/Verbalizations/Mental Status: [] Eye contact is good. Motor activity is appropriate. Appearance is neat. Speech is Appropriate. Mood is anxious. Affect is congruent. Thoughts are linear and logical. No evidence of psychosis. Client Response/Progress/Benefit: [] Pt was an active participant in group discussion and activity. Attentive during psychoeducation. Patients worked together to provide insights on what fear of failure is to them. Pt along with peers were able to identify the negative impact of fear of failure which can lead to; no growth, distorted beliefs, missing opportunities, unrealistic expectations, comparing self to others, isolation, depression, anxiety, and fear of trying. Pt was engaged in group activity and was able to verbalize how fearing failure in the experiential task impacted her mood and decision-making. Benefited from increased awareness of the negative impact of fear of failure can have on mental health and progress. Will continue in IOP to prevent decompensation, improve functioning to return to work, and decrease intrusive thoughts regarding contamination. Narrative Note: [] This psychotherapy group was provided via telehealth using two-way, real-time interactive telecommunication technology between the patients and the provider. The interactive telecommunication technology included audio and video. The patient was offered telemedicine as an option for care delivery during the COVID-19 pandemic and consented to this option. Patient location: [place] Provider located at [facility]
--- NOTE | 2020-10-03 11:14 | BH.SGPN.GN ---
This psychotherapy group was provided via telehealth using two-way, real-time interactive telecommunication technology between the clients and the provider. The interactive telecommunication technology included audio and video. The client was offered telemedicine as an option for care delivery during the COVID-19 pandemic and consented to this option. Client location: [place] Provider located at Behaviors/Verbalizations/Mental Status: []Client alert and oriented, casually dressed and groomed. Eye contact good. Motor activity WNL. Speech within normal limits. Affect constricted, mood anxious and dysthymic. Thoughts linear, logical, no signs of hallucinations or delusions. Client Response/Progress/Benefit: []Client responded well to session, engaged and actively participating throughout. Client completed the fear of failure worksheet and reported that fear of failure has kept client from pursuing his passions. Client able to identify thoughts and behaviors that reinforce personal fear of failure which included: defining failure as a bad thing and catastrophizing. Client attentive during discussion of the different strategies to help overcome fear of failure. Identified wanting to work on paying attention to the positives rather than looking at the what ifs. Client appeared to benefit from learning ways to overcome fear of failure. Will continue IOP tx to reduce compulsions and better manage intrusive thought patterns. Narrative Note: []
== END 2020-10-03 23:59 ==
LOC: BHIOP 09:00
PROVIDERS: Referring Provider Psychiatry & Neurology Psychiatry; Visit Provider Psychiatry & Neurology Psychiatry
DX: F42.9 Obsessive-compulsive disorder, unspecified (principal); F33.2 Major depressive disorder, recurrent severe without psychotic features
CPT/HCPCS: S9480; 90834; 90853

== ENCOUNTER 2020-10-04 08:25 | Outpatient (RCR) | payer BC, SELFPAY ==
--- NOTE | 2020-10-09 09:05 | BH.SGPN.GN ---
Behaviors/Verbalizations/Mental Status: [] Pt eye contact good, casually dressed, motor activity appropriate, speech normal rate and tone, mood anxious, constricted affect, thoughts linear and intact, no evidence of delusions or hallucinations. Reviewed client?s symptom tracker, no signs of suicidal ideation, plan, or intent as of today. Client Response/Progress/Benefit: []Pt engaged participant AEB listening attentively to others and sharing thoughts and feelings. Pt stated he had a rough weekend. Pt reported he jumped up his fear ladder significantly by agreeing to have family at his house for the holiday. Pt stated he was stressed and anxious all weekend. Pt reported he is still anxious because he is having intrusive contamination thoughts even though the people are out of his house. Pt recognized he jumped the fear ladder which resulted in significant anxiety all weekend. pt stated he struggles with following the fear ladder because he wants to be able to do normal family things and he doesn't want to hold his family back. Pt expressed understanding that his progress could be hindered if doesn't follow the steps of the fear ladder. Pt seemed to benefit from support and gentle challenging from therapist. pt to continue IOP to decrease anxiety, improve daily functioning and prevent decompensation. Narrative Note: []
--- NOTE | 2020-10-09 10:15 | BH.SGPN.GN ---
Behaviors/Verbalizations/Mental Status: [] Eye contact is good. Motor activity is appropriate. Appearance is casual. Speech is Appropriate. Mood is anxious. Affect is congruent. Thoughts are linear and logical. No evidence of psychosis. Client Response/Progress/Benefit: [] Pt was an active participant in group discussion and activity. Attentive during psychoeducation. Engaged and provided feedback during activity where group had to identify 10 positives and 10 negatives of a picture. Provided her thoughts on how one's perspective is formed and with the group identified several ways such as; upbringing, trauma, environment, friends, past events, fear, medical issues, physical pain, and mental health disorders. Along with her peers identified how one's perspective can negatively impact mental health treatment leading to; risky behaviors, suicidal thoughts, self-harming, isolation, avoiding treatment, shutting down, and can also cause one to stop taking medications. Provided input into how a positive or realistic perspective can help decrease depression, improve relationship, increase hope, and increase motivation. Increased awareness and discussion on the role that perspective has on mental health was beneficial. Will continue in IOP to decrease intrusive thoughts, stabilize mood, and improve functioning to return to work. Narrative Note: [] This psychotherapy group was provided via telehealth using two-way, real-time interactive telecommunication technology between the patients and the provider. The interactive telecommunication technology included audio and video. The patient was offered telemedicine as an option for care delivery during the COVID-19 pandemic and consented to this option. Patient location: [place] Provider located at [facility]
--- NOTE | 2020-10-09 11:15 | BH.SGPN.GN ---
This psychotherapy group was provided via telehealth using two-way, real-time interactive telecommunication technology between the clients and the provider. The interactive telecommunication technology included audio and video. The client was offered telemedicine as an option for care delivery during the COVID-19 pandemic and consented to this option. Client location: [place] Provider located at [facility] ehaviors/Verbalizations/Mental Status: []Client alert and oriented, neatly dressed and groomed. Eye contact good. Motor activity appropriate. Speech within normal limits. Affect constricted, mood anxious. Thoughts linear, logical, no signs of hallucinations or delusions. Client Response/Progress/Benefit: []Pt engaged participant AEB pt providing input throughout session, listening attentively to peers and completing strengths exploration handout. Pt identified personal strengths such creativity, humor, and love. Pt stated these strengths will help pt?s mental health recovery by giving him healthy distraction, understanding others, and keeping things light. Pt gained awareness that he shows love to others, but does not show love to himself. Pt seemed to benefit from increased awareness of personal strengths and improved understanding how perspective can impact view of self. Pt also attentive while group identified coping skills to increase recognition of strengths. Pt?s progress continues to be limited as pt continues to decline medication and self-reports pushing himself too much on his fear ladder. Pt is to continue IOP tx to prevent further decompensation and increase use of healthy coping skills. Narrative Note: []
--- NOTE | 2020-10-10 09:00 | BH.SGPN.GN ---
This psychotherapy group was provided via telehealth using two-way, real-time interactive telecommunication technology between the clients and the provider. The interactive telecommunication technology included audio and video. The client was offered telemedicine as an option for care delivery during the COVID-19 pandemic and consented to this option. Client location: [place] Provider located at [facility] Behaviors/Verbalizations/Mental Status: []Client alert and oriented, casually dressed and groomed. Eye contact good. Motor activity appropriate. Speech within normal limits. Affect constricted, mood anxious and tired. Thoughts linear, logical, no signs of hallucinations or delusions. Reviewed client?s symptom tracker, no risk for suicidal ideation, plan, or intent as of 10/10/20 Client Response/Progress/Benefit: []Client responded well to session, attentive and engaged. Client reports feeling anxious and exhausted this morning. Client shared over the weekend he was forced to take too many steps on his fear ladder. Client's 's family stayed with client's family which was a major stressor due to contamination fears. Client reported in the moment he handled it well, but after he felt overwhelmed and drained. Client has been trying to cope by using healthy distractions and exercising. Client was encouraged to practice keeping track of his wins and to continue working on small exposure goals. Client recognizes that he struggles with jumping the ladder and setting lofty goals to overcome his anxiety/OCD. Appeared to benefit from processing stressors and receiving feedback. Will continue IOP tx to increase emotional regulation skills to improve overall functioning. Narrative Note: []
--- NOTE | 2020-10-10 10:10 | BH.SGPN.GN ---
Behaviors/Verbalizations/Mental Status: []Client alert and oriented, casually dressed and groomed. Eye contact good. Motor activity appropriate. Speech within normal limits. Affect constricted, mood anxious. Thoughts linear, logical, no signs of hallucinations or delusions. Client Response/Progress/Benefit: []Client responded well to session, attentive and frequently contributing to discussion. Client worked with the group to identify factors that contributed to how we define ourselves. Client reported that when he has confided in others about his anxiety about germs he has had several people respond by making fun of him. Client reported this response has created a stigma about his mental illness which prevented him from taking it serious for a long time. Client worked with group to identify and discuss social and perceived stigma. Client seemed to benefit from increased awareness of how mental health stigma can impact progress and self-worth. Client to continue IOP tx to improve daily functioning, decrease avoidance behaviors and prevent decompensation. Narrative Note: []
--- NOTE | 2020-10-10 13:36 | BH.MDN_ITS ---
Multi-Disciplinary Note - Note 45-min Individual Time Started:: 11:23 Date: 10/10/20 Purpose of session/treatment goals addressed:: To complete the tx plan review and discuss progress/barriers. Another goal was to schedule a family session and discuss returning to work. Symptoms/Behavior:: This counseling session was provided via telehealth using two-way, real-time interactive telecommunication technology between the client a nd the clinician. The interactive telecommunication technology included audio and video. The client was offered telehealth as an option for care delivery during the COVID-19 pandemic and consented to this option. Client location: [place]. Provider located at [facility] Eye Contact:: Good Motor Activity:: Appropriate Appearance:: Casual Speech:: Appropriate Mood:: Anxious, Dysthymic Affect:: Congruent Thoughts:: Circular, No evidence of hallucinations/delusions noted Staff Interventions:: Therapist administered the DSM-5 questionnaire and reviewed it with client. Therapist discussed progress and explored current barriers. Therapist used motivational interviewing and attempted to help client gain awareness of self-sabotaging behaviors. Therapist encouraged client to attend IOP in person to help client transition back to work. Client Response:: Client responded well to session, open to meeting with therapist. Client stated he has been feeling overwhelmed due to recent exposure events. Client admits that having his 's family stay over was too much but client feels like he had to because his would have been disappointed. Client continues to struggle with setting realistic exposure goals and admits that he is often driven by making others happy. Discussed barriers that impact client's ability to set boundaries such as negative self-talk, stigma, and worry. Client stated he has to go back to work on 10/22/20 as client is out of time off and his work will not accommodate a part-time schedule. Therapist expressed concern about client being in an in-person setting without medication and without prolonged social exposure. Therapist encouraged client coming into IOP to help with this transition and also encouraged client to reconsider medication. Client stated he does not want to take medication yet as client is trying to focus more on a holistic approach and wants to see his capabilities at work without medication. Client stated he would think about coming into IOP in person and admitted this was very anxiety producing for him. Reviewed healthy coping skills to use for anxiety as well as negative self-talk. Client will have a family session next week. Risks/Concerns:: Client denies any suicidal ideations, plan, or intent as of 10/10/20. IOP staff does have concerns that client continues to decline medication to treat his OCD. Progress Toward Goals/Plan:: Client's DSM-5 scores have decreased by 11% since admission and his depression has decreased by 20%. However, client's scores for anxiety have not decreased since admission. See treatment plan review for further details on symptoms and progress. Client will continue IOP tx to promote work-related functioning and to improve emotional regulation skills. Therapist strongly encouraged client to attend in-person sessions for the next week of treatment. Time Stopped:: 12:10
--- NOTE | 2020-10-10 13:36 | BH.MTP_ITS ---
Treatment Plan Review Date of Admission:: 09/10/20 Date of Treatment Plan Review:: 10/10/20 Admitting Diagnoses:: Obsessive-compulsive disorder F 42.2; major depressive disorder, recurrent, severe without psychosis Current Diagnoses:: Obsessive-compulsive disorder F 42.2; major depressive disorder, recurrent, severe without psychosis Patient's Response to Treatment:: Client's response to treatment is variable. Client has good attendance and he appears to be engaged during group discussions and individual sessions. Client has accomplished some goals from his fear ladder and he reports daily exercise. However, client continues to struggle with setting realistic goals which end up reinforcing negative self-talk, anxiety, and OCD. Client has been encouraged by [facility] staff, including [facility] psychiatrist, to take medication to help manage OCD symptoms and client continues to decline. Client has gained insight to his warning signs, triggers, and healthy coping skills, but his progress is currently mild. Status of Current Problems and Symptoms: Client's DSM-5 scores have decreased by 11% overall. Client's scores for depression decreased by 20% since admission but anxiety has not decreased since admission. Client has knowledge of healthy coping skills and is making healthy changes with his diet and exercise. As stated above, client is actively working on ERP goals, but he continues to set unrealistic goals despite feedback from IOP staff. Client is currently reporting increased anxiety triggered by contamination worries following two days of family visiting. Client continues to struggle with boundary setting, challenging negative self-talk, and guilt. Client also reports ongoing cleaning rituals but client reports he has been doing better with prolonging the cleaning rituals. Client is worried about returning to work in two weeks as his functioning is still significantly impacted by his mental health symptoms. Lastly, client worries about how his OCD and anxiety are impacting his family's wellbeing which causes increased guilt. Problem #1 Problem Name:: OCD (contamination fears and compulsions through cleaning rituals). Status of Goals:: Objective 1- in progress. Client has learned about intrusive thoughts and strategies to overcome intrusive thinking using the overcoming unwanted intrusive thought book. Client is working on not giving value to intrusive thoughts and reminding himself to use his hong mind rather than his worried voice. Client continues to struggle with applying this skill on his own. Objective 2- not complete. Client initially was making good progress with setting small exposure goals, but then client started setting too many unrealistic goals which resulted in decompensation. Client admits that he has all or nothing thought patterns which may be a barrier to setting smaller, more achievable goals. Team Recommendations:: Treatment team encourages client to consider medication to treat his OCD symptoms in addition to ERP. Treatment team also recommends client to continue working on small exposure goals and repetition. Problem #2 Problem Name:: Depression, guilt, and negative selk-talk Status of Goals:: Objective 1- complete. Client?s DSM-5 scores for depression have decreased since admission by 20%. Client has been reporting spending time with his son, pets, and . Client has also been exercising on a daily basis. Objective 2- in progress. Client has gained awareness of different distorted thought patterns and is learning how to challenge these. Client is working on keeping track of his wins through journaling. Client has gained awareness of deep-rooted negative core beliefs and internal mental health stigma that continue to impact his self-talk. Team Recommendations:: Treatment team recommends ongoing work on thought challenging, self-compassion, and setting realistic goals. Treatment team also recommends that client bring in his for a family session to combat guilt, increase support, and improve communication.
--- NOTE | 2020-10-11 09:05 | BH.SGPN.GN ---
Behaviors/Verbalizations/Mental Status: [] Eye contact is good. Motor activity is appropriate. Appearance is casual. Speech is Appropriate. Mood is anxious. Affect is congruent. Thoughts are linear and logical. No evidence of psychosis. Reviewed daily check in sheet and no reports of suicidal ideations or intent Client Response/Progress/Benefit: [] Pt participated when prompted. Attentive. No feedback given to peers. Emotion for today is mediocre. Shared that he had a stressful weekend which carried over into the week. Insight that utilizing self-care last night would be beneficial which he did. States that he participated in some hobbies and found it to be beneficial. Reports I'm feeling better today ... it reset me. Continues to isolate due to fear of contamination and getting COVID. He is scheduled to return to work on 10/22/20 which is causing significant anxiety as he has not been to work since 03/2020. He reports that he is working with individual therapist in the program to come up with a plan to manage obstacles for his first day back. Progress noted per pt report. Benefited from group support, encouragement, and feedback. Will continue in IOP to decrease intrusive thoughts, improve functioning, and help with transition back to work. Narrative Note: [] This psychotherapy group was provided via telehealth using two-way, real-time interactive telecommunication technology between the patients and the provider. The interactive telecommunication technology included audio and video. The patient was offered telemedicine as an option for care delivery during the COVID-19 pandemic and consented to this option. Patient location: [place] Provider located at [facility]
--- NOTE | 2020-10-11 10:10 | BH.SGPN.GN ---
Behaviors/Verbalizations/Mental Status: [] Client alert and oriented, casually dressed and groomed. Eye contact fair to good. Motor activity appropriate. Speech within normal limits. Affect congruent, mood anxious. Thoughts linear, logical, no signs of hallucinations or delusions. Client Response/Progress/Benefit: [] Pt was an attentive participant in group discussion AEB actively listening, providing some input, taking notes, as well as completed group worksheet. Attentive as group discussed how learning to manage anger can positively improve mental health sx management and relationships. Gave personal example of how anger has resulted in increased isolation and negative self-talk in the past. Group worked together to define anger and discussed the ways anger can impact one internally and externally. Pt reported that anger can be triggered by external situations and well as internal things such as shame. Pt completed the iceberg exercise and identified emotions that tend to ?live under the surface? of anger. Pt also gained awareness of his typical responses to anger which included: shutting down, isolating self, cursing, and starting and stopping a lot of tasks. Benefited from group by increasing understanding of the impact of anger on mental health. Recommended continued tx to improve mood and anxiety management skills, prevent decompensation, and continue to work on improving consistent skill application. Narrative Note: []
--- NOTE | 2020-10-11 11:10 | BH.SGPN.GN ---
This psychotherapy group was provided via telehealth using two-way, real-time interactive telecommunication technology between the clients and the provider. The interactive telecommunication technology included audio and video. The client was offered telemedicine as an option for care delivery during the COVID-19 pandemic and consented to this option. Client location: [place] Provider located at [facility] Behaviors/Verbalizations/Mental Status: []Client alert and oriented, casually dressed and groomed. Eye contact good. Motor activity appropriate. Speech within normal limits. Affect constricted, mood anxious. Thoughts linear, logical, no signs of hallucinations or delusions. Client Response/Progress/Benefit: []Pt was engaged throughout AEB participating in discussion and taking notes. Contributed as group brainstormed healthy coping skills for better managing anger which included: deep breathing, counting, exercise, self-reflection questions, and opposite action. Pt also gained awareness of physical warning signs pt has when feeling anger such as nausea, getting hot, and restless energy. Pt appeared to benefit from identifying different techniques to manage anger as well as gaining awareness of warning signs. Pt selected deep breathing techniques to better manage anger. Pt reported this will also help his anxiety and he was encouraged to practice this daily. Will continue IOP tx to reduce intensity of anxiety and reduce avoidance behaviors. Narrative Note: []
--- NOTE | 2020-10-15 09:01 | BH.SGPN.GN ---
Behaviors/Verbalizations/Mental Status: []Client alert and oriented, casual dress, hygiene tended to. Eye contact fair. Motor activity appropriate. Speech within normal limits. Affect constricted, mood dysthymic and anxious. Thoughts linear, logical, no signs of hallucinations or delusions. Client Response/Progress/Benefit: []Pt responded well to session AEB pt openly sharing thoughts and listening attentively to others. pt stated he is feeling extremely tired today because was up very early this morning. Pt identified mental health positive as keeping up with physical activity. Pt reported additional mental health positive as focusing on creating a schedule. Pt reported stressor is having to return to work next week. Pt stated concerned about having to go in person to work. Pt seemed to benefit from expressing thoughts and feelings. Progress has been hindered by pt's lack of follow through with skills. Pt has reported many times in which pushing self too much which has led to self-sabotage. Pt to continue IOP to increase consistent use of healthy coping, improve daily functioning and prevent decompensation. Narrative Note: []
--- NOTE | 2020-10-15 10:15 | BH.SGPN.GN ---
Behaviors/Verbalizations/Mental Status: []Eye contact is good. Motor activity is appropriate. Appearance is casual. Speech is Appropriate. Mood is anxious. Affect is constricted. Thoughts are linear and logical. No evidence of psychosis. Client Response/Progress/Benefit: []Pt was an active participant in group discussion and activity. Attentive during psychoeducation on factors that build resiliency. Worked with peers to define resilience and shared ?ability to withstand your environment? as resiliency. Along with peers also identified what could impact resilience which included: family, internal coping skills, beliefs, hope, and personality type. Pt reports support from family, counting his blessings, and compassion make pt resilient. Pt benefited by increasing awareness on the role of resilience in mental health and factors that can help build resiliency. Will continue in IOP for two more sessions as pt wishes to return to work next week. Can benefit from reinforcing healthy coping skills. Narrative Note: []
--- NOTE | 2020-10-15 14:26 | BH.MDN_ITS ---
Multi-Disciplinary Note - Note Family Time Started:: 12:05 Date: 10/15/20 Purpose of session/treatment goals addressed:: The purpose of this session was to engage client's in treatment by providing psychoeducation on OCD and to help the couple create realistic fear ladder goals. Eye Contact:: Fair Motor Activity:: Appropriate Appearance:: Casual Speech:: Appropriate Mood:: Euthymic, Anxious Affect:: Congruent Thoughts:: Linear, Logical, No evidence of hallucinations/delusions noted Staff Interventions:: Therapist used open-ended questions and active listening to gather information on expectations for the session. Therapist helped couple identify current strengths and techniques helping client's mental health. Therapist provided psychoeducation on OCD including family accommodation behaviors and ERP. Therapist reviewed fear ladder goals with couple. Client Response:: Client and his responded well to session, open to meeting with therapist. Client's shared she wants to work on when to push and when not to push. Client's shared client has done well with challenging himself and setting outside of his comfort zone, but she can tell there have been times when he has pushed himself too far. Discussed the importance of small, repeatable steps and why creating a realistic fear ladder is important. Client admits that he struggles to tell his when things are too much because he does not want to disappoint her. Couple receptive to discussing planning the fear ladder together. Together, therapist and the couple looked at example fear ladder steps and client picked the following topics to focus on: dirt/germs, public surfaces, and basic OCD worries. The couple will finish these for homework. Also discussed reassurance seeking behaviors client has such as asking for permission and asking his if things will be ok. Therapist encouraged his to not give as much reassurance and provided psychoeducation as to why. Couple came up with a statement client's can say when client wants reassurance. Risks/Concerns:: Client denies any suicidal ideations, plan, or intent as of 10/15/20. Progress Toward Goals/Plan:: Client and his report progress as client has been able to reduce rituals he had a few months ago. Also report progress in increased insight and client's ability to sit with the uncomfortable. Client continues to struggle with reassurance seeking, avoidance behaviors, and some rituals. Client plans to return to work next week and IOP staff still has concerns about client's ability to cope in the work setting. Client will discharge from [facility] tx later this week and continue with outpatient therapy. Time Stopped:: 13:05
--- NOTE | 2020-10-16 09:08 | BH.SGPN.GN ---
Behaviors/Verbalizations/Mental Status: []Eye contact is fair to good. Motor activity is appropriate. Appearance is casual. Speech is Appropriate. Mood is euthymic and anxious. Affect is congruent. Thoughts are linear and logical. No evidence of psychosis. Reviewed daily check in sheet and no reports of suicidal ideations or intent. Client Response/Progress/Benefit: []Pt was an attentive though passive participant in group AEB actively listening and willingness to process, though providing limited feedback. Client reports emotion for the day as ?nervous? as he is to return to work soon. Discussed utilizing his as a support in coping with this anxiety, as well as challenging his own anxious thoughts. Went on to identify personal wins which included increased use of self-compassionate statements as well as a successful family session the previous date. Continues to struggle with consistent progress as client often falls into distorted thinking patterns or sets unrealistic goals for himself, though is increasing insight in these areas. Benefited from group support, encouragement, and feedback. Will continue in IOP to improve coping repertoire, internal support, and improve overall mood stability. Narrative Note: []
--- NOTE | 2020-10-16 10:15 | BH.SGPN.GN ---
Behaviors/Verbalizations/Mental Status: []Client alert and oriented, casually dressed and groomed. Eye contact good. Motor activity appropriate. Speech within normal limits. Affect constricted, mood anxious. Thoughts linear, logical, no signs of hallucinations or delusions. Client Response/Progress/Benefit: []Client engaged during session AEB client contributing thoughts throughout discussion and completing worksheet. Connected with discussion on crisis and how coping with external crises by using unhealthy coping skills could result in a personal crisis. Group reflected on the importance of having awareness of personal warning signs in order to prevent reaching crisis point. Group identified potential warning signs for crisis and client completed the personal warning signs worksheet. Client identified personal crisis warning signs to include: racing thoughts, irritability, and avoidance. Client benefited by increasing awareness of what leads to crisis and personal warning signs. Pt will continue IOP to decrease avoidance behaviors, increase healthy coping, and prevent decompensation.
--- NOTE | 2020-10-16 11:15 | BH.SGPN.GN ---
This psychotherapy group was provided via telehealth using two-way, real-time interactive telecommunication technology between the clients and the provider. The interactive telecommunication technology included audio and video. The client was offered telemedicine as an option for care delivery during the COVID-19 pandemic and consented to this option. Client location: [place] Provider located at [facility] Behaviors/Verbalizations/Mental Status: []Client alert and oriented, casually dressed and groomed. Eye contact good. Motor activity appropriate. Speech within normal limits. Affect constricted. Mood anxious and euthymic. Thoughts linear, logical, no signs of hallucinations or delusions. Client Response/Progress/Benefit: []Client responded well to session as evidenced by client listening attentively to others and providing strategies during discussion. Client identified warning signs for crisis and gained further awareness of earliest warning signs. Client created a crisis action plan to help client better manage warning signs for crisis. Client?s action plan for racing thoughts, irritability, and avoidance included coping skills such as: music, acknowledging positives, opposite action, fear ladder goals, and identifying the benefits of doing the anxious thing. Client appeared to benefit from creating a crisis action plan and increasing self-awareness. Client to continue IOP tx through tomorrow and then discharge to return to work. Narrative Note: []
--- NOTE | 2020-10-17 07:29 | BH.AFTERPLAN ---
Aftercare Plan - Demographics Treatment End Date:: 10/17/20 Psychiatrist:: Felicia Arredondo Psychiatrist Office #:: [phone] [facility] Therapist:: Haley Leugn Therapist Phone #:: [phone] - Plan Details Progress/Aftercare Plan Details:: Progress includes overall symptoms reducing by 13%. Depression decreased by 20%, and anxiety decreased by 22%. Progress also noted in increased insight to symptoms, warning signs, and terminology. Client has gained valuable coping skills and has learned different ways to manage intrusive thinking and other negative thought patterns. Client was able to exposure himself to more anxiety-producing situations throughout IOP tx and he will continue to work on his fear ladder. Client had consistent attendance and was a good group member. Strategies for Success:: 1.Opposite action! Continue to break those unhealthy maintenance cycles by changing behavior. This could look like getting active, not engaging in safety behaviors, etc. Remember changing our behaviors changes our mood. 2. Thought challenging when appropriate! Remember to challenge distortions and reframe your thinking! Some distortions to be aware of include emotional reasoning, all or nothing thinking, mental filtering, and catastrophizing. 3. self-care! You deserve to take breaks, not be perfect, give yourself credit, meditate, etc. 4. Acceptance! When your intrusive thoughts occur, remember they are just that? Thoughts! Let them come and go without giving them value. 5. Practice self-compassion. Ask yourself if your expectations are truly realistic and be kind to yourself. 6. Limit safety behaviors! Continue to cut back on those behaviors that provide short term relief, but overtime feed into anxiety. 7. Practice gratitude 8. Practice positive self-talk and keep track of your strengths. 9. Remember progress isn?t linear! You may have a setback or bump in the road, but that doesn?t mean you?ve lost all progress. 10. Remember to REPEAT the anxious thing OVER and OVER and OVER again! - Appointments Appointments/Referrals to Other Services:: 1. Follow up with Gaby at [facility] for individual therapy. 2. Follow up with Vika Santos at [place] [id number]. 3. [facility] in [place], [place] [phone]. 4. [facility]
--- NOTE | 2020-10-17 08:13 | BH.DS_ITS ---
Discharge Summary - Demographics Date of Admission:: 09/10/20 Discharge Date: 10/17/20 Presenting Problems at Admission:: Client as 35-year-old male with a history of OCD and MDD. Client was referred to [facility] by his outpatient licensed psychiatric technician due to client's mental health symptoms impacting his functioning and limited benefit from traditional counseling. Client has not been to work since 03/2020 due to fears, compulsions, and obsessions. Client endorses contamination fears such as getting COVID or other illnesses from touching contaminated sources. Client was spending many hours engaging in cleaning rituals and was isolating. Prior to admission, client had not left his house and stepping out of his bubble resulted in significant distress. 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 At admission, client endorsed a poor appetite, hopelessness, worthlessness, and crying spells. Client also felt like a burden to his due to limited functioning and not being able to work. Client's symptoms were significantly impacting his social, familial, and occupational functioning. Discharge Diagnoses:: Obsessive-compulsive disorder F 42.2; major depressive disorder, recurrent, severe without psychosis Reason for Discharge:: Client has made progress towards his tx goals AEB reduced overall symptoms. Client also returns to work full-time next week. - Treatment Progress During Treatment & Response: Client responded well to [facility] tx as client had good attendance and he was engaged during group and individual sessions. Progress includes overall symptoms reducing by 13%. Depression decreased by 20%, and anxiety decreased by 22%. Client?s symptoms for OCD remained the same from admission to discharge. This could be due to client?s difficulty with setting realistic goals during [facility] tx and focusing more on exposure and less on response prevention with rituals. Client did make progress with reducing avoidance behaviors which will be beneficial for ongoing therapy. Client self-reports progress in learning more about his mental health symptoms and warning signs as well as gaining valuable coping skills. Issues Still to be Addressed:: Treatment team encourages client to consider medication to treat his OCD symptoms in addition to ERP. Treatment team also recommends client to continue working on small exposure goals and repetition in addition to reducing rituals. Client could benefit from transitioning back to work on a part-time basis, but this was not available to client at this time. Discharge Recommendations/Instructions:: Client is recommended to follow up with his outpatient therapist, Gaby, at [facility]. Client sees Vika Santos at [place] [id number] for psychiatry, but client is still opposed to medications at this time. Client has been encouraged to revisit taking medications in the future. Client was also provided with information for two OCD specific treatment centers, [facility] and [facility] in [place]. Discharge Handout: Complete Discharge Handout with client on aftercare options and continuity of care.
--- NOTE | 2020-10-17 09:00 | BH.SGPN.GN ---
This psychotherapy group was provided via telehealth using two-way, real-time interactive telecommunication technology between the clients and the provider. The interactive telecommunication technology included audio and video. The client was offered telemedicine as an option for care delivery during the COVID-19 pandemic and consented to this option. Client location: [place] Provider located at [facility] Behaviors/Verbalizations/Mental Status: []Eye contact is good. Motor activity is appropriate. Appearance is casual. Speech is Appropriate. Mood is anxious. Affect is flat. Thoughts are linear and logical. No evidence of psychosis. Reviewed daily check in sheet and pt denies any suicidal ideations or thoughts of today. Client Response/Progress/Benefit: []Client responded well to session, attentive and engaged. Client shared he feels moderately comfortable this morning as it is client's last day of IOP. Client plans to return to work next week and he has been ruminating about this. Client shared he felt IOP helped him learn the right terminology for his anxious thoughts and helped client remind himself that he can get through stressors. Throughout IOP tx client was encouraged to consider medication, but client reports he wants to see how he responds in the work setting without medication. 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 Client has made progress in reduced depression and plans to follow up with outpatient counseling. Narrative Note: []
--- NOTE | 2020-10-17 10:10 | BH.SGPN.GN ---
Behaviors/Verbalizations/Mental Status: []Client alert and oriented, casually dressed and groomed. Eye contact good. Motor activity appropriate. Speech within normal limits. Affect congruent, mood anxious and euthymic. Thoughts linear, logical, no signs of hallucinations or delusions. Client Response/Progress/Benefit: []Client receptive to session, actively engaged AEB listening, providing input, and taking notes throughout. Appeared to connect with topic as client expressed stress has impacted his ability to reach goals and effectively communicate in the past. Worked with the group on brainstorming positive and negative impacts of stress on physical and mental health. Client willing to complete stress jar activity in which participants identified current stressors impacting mental health. Shared his top 3 stressors as: homeowner projects, trying to improve his physical fitness, and finances. Expressed that ?what if? thoughts often impact his ability to effectively manage stressors and have resulted in increased avoidance, shutting down, or irritability in the past. Appeared to benefit from psychoeducation on stress and increasing awareness on his own stressors and common stress responses. Client to discharge from IOP tx on this date and is recommended continued outpatient tx to further address anxiety and continue to promote healthy change behaviors. Narrative Note: []
--- NOTE | 2020-10-17 11:15 | BH.SGPN.GN ---
Behaviors/Verbalizations/Mental Status: []Client alert and oriented, casually dressed and groomed. Eye contact good. Motor activity appropriate. Speech within normal limits. Affect constricted, mood anxious. Thoughts linear, logical, no signs of hallucinations or delusions. Client Response/Progress/Benefit: []Client engaged in session AEB listening attentively to others and providing input throughout discussions. Client remained attentive during discussion about the 4 A's of managing stress and discussed connecting with the various benefits of each. Client reported he would like to work on the strategy of adapting his perspective about home projects. Client stated he will adapt his perspective by listening to a podcast while working on a home project. Client seemed to benefit from increased awareness of the impact of stress on mental health and increasing repertoire of stress management strategies. Will continue IOP tx to prevent decompensation, decrease anxiety and increase consistent application of skills. Narrative Note: []
== END 2020-10-17 14:02 | disposition home or self-care (01) ==
LOC: BHIOP 08:25
PROVIDERS: Referring Provider Psychiatry & Neurology Psychiatry; Visit Provider Psychiatry & Neurology Psychiatry
DX: F42.2 Mixed obsessional thoughts and acts (principal); F33.2 Major depressive disorder, recurrent severe without psychotic features
CPT/HCPCS: S9480; 90834; 90847; 90853